=== PATIENT | male | born 1995 | race Caucasian/White ===

== ENCOUNTER 2017-08-26 10:46 | Emergency (ER) | payer SELFPAY ==
[2017-08-26 11:06] VITALS: RESP 18; TEMP 97.7
--- NOTE | 2017-08-26 11:49 | C.PDOC ---
History Of Present Illness 22-year-old male, presents to the emergency department with complaints of a diffuse itchy rash to body for the past five days. Patient states his girlfriend has similar symptoms. Denies Hx of food allergy, fever, chills, wheezing, shortness of breath or any other associated symptoms. No other complaints at this time. Time Seen by Provider: 08/26/17 11:39 Chief Complaint (Nursing): Abnormal Skin Integrity History Per: Patient History/Exam Limitations: no limitations Onset/Duration Of Symptoms: Days Current Symptoms Are (Timing): Still Present Past Medical History Reviewed: Historical Data, Nursing Documentation, Vital Signs Vital Signs: Last Vital Signs Temp 97.7 F 08/26/17 11:02 Pulse 67 08/26/17 12:07 Resp 18 08/26/17 12:07 BP 121/75 08/26/17 12:07 Pulse Ox 100 08/26/17 17:17 Family History: States: No Known Family Hx - Social History Hx Alcohol Use: No Hx Substance Use: No - Immunization History Hx Tetanus Toxoid Vaccination: No Hx Influenza Vaccination: No Hx Pneumococcal Vaccination: No Review Of Systems Constitutional: Negative for: Fever, Chills Cardiovascular: Negative for: Chest Pain Respiratory: Negative for: Shortness of Breath Skin: Positive for: Rash Physical Exam - Physical Exam Appears: Well, Non-toxic, No Acute Distress Skin: Normal Color, Warm, Dry, Rash (SCATTERED ERYTHEMATOUS WITH MIDDLE INDURATION PAPULES TO ANTERIOR CHEST, UPPER BACK, B/L UES. NO CELLULITIS, NO FLACTULANCE.) Head: Normacephalic Eye(s): bilateral: PERRL Nose: No Flaring, No Discharge Oral Mucosa: Moist, No Drooling Tongue: Normal Appearing, No Swelling Lips: Normal Appearing, No Swelling Throat: No Drooling, Other (UVULA MIDLINE, NO MIDLINE.) Neck: Trachea Midline, Supple Respiratory: No Decreased Breath Sounds, No Accessory Muscle Use, No Stridor, No Wheezing Extremity: Normal ROM, No Swelling Neurological/Psych: Oriented x3, Normal Speech ED Course And Treatment O2 Sat by Pulse Oximetry: 100 Pulse Ox Interpretation: Normal Progress Note: On re-eval, pt is afebrile, hemodynamicaly stable. Non-toxicm. PulsOx 100% RA. ENT: no acute findings, uvula midline, no edema. neck: Supple , (-) meningeal sign. Lungs: CTA B/L, BS equal B/L. Skin: rash c/o insect bite , no clelulitis, no flactulance. Pt adbvised. ref. to f/u with PMD in 2-3 days for re-eavl. return if any new chanegs. Disposition Counseled Patient/Family Regarding: Diagnosis, Need For Followup, Rx Given - Disposition Referrals: [facility] [Outside] Disposition: HOME/ ROUTINE Disposition Time: 11:40 Condition: STABLE Additional Instructions: CLEAN SPACE, BED, ETC TAKE BENADRYL NEED FOR ITCHINESS FOLLOW UP WITH PMD IN 2-3 DAYS FOR RE-EVALUATION. RETURN IF ANY NEW CHANGES. Prescriptions: DiphenhydrAMINE [Benadryl] 25 mg PO BID #10 cap Instructions: Insect Bite or Sting (ED) Forms: [employer] ([place]) - Clinical Impression Clinical Impression: Insect bite - Scribe Statement The provider has reviewed the documentation as recorded by the Scribe (Arpita Mcdonnell) All medical record entries made by the Scribe were at my direction and personally dictated by me. I have reviewed the chart and agree that the record accurately reflects my personal performance of the history, physical exam, medical decision making, and the department course for this patient. I have also personally directed, reviewed, and agree with the discharge instructions and disposition.
[2017-08-26 12:08] VITALS: BP 121/75; PULSE 67
[2017-08-26 17:15] VITALS: O2SAT 100
== END 2017-08-26 12:15 | disposition home or self-care (01) ==
LOC: C.ER 10:46
DX: T14.8XXA Other injury of unspecified body region, initial encounter (principal); W57.XXXA Bitten or stung by nonvenomous insect and other nonvenomous arthropods, initial encounter